=== PATIENT | female | born 1975 | race American Indian/Alaskan Native ===

== ENCOUNTER 2017-10-09 11:53 | Emergency (ER) | payer BC ==
[2017-10-09 12:05] VITALS: BMI 48.9
[2017-10-09 12:09] VITALS: RESP 18; O2SAT 99
[2017-10-09] MEDS ORDERED: Nitroglycerin 2% Ointment Foilpak UD TOP STA (13:19)
[2017-10-09] MEDS ORDERED: Nitroglycerin 2% Ointment Foilpak UD TOP ONE (13:39)
--- NOTE | 2017-10-09 14:32 | C.PDOC ---
History Of Present Illness 42 year old female with a PMHx presents to the ED with complaints of anal pain for the past month Time Seen by Provider: 10/09/17 13:09 Chief Complaint (Nursing): Female Genitourinary History Per: Patient History/Exam Limitations: no limitations Current Symptoms Are (Timing): Still Present Recent travel outside of the [place]: No Past Medical History Reviewed: Historical Data, Nursing Documentation, Vital Signs Vital Signs: Last Vital Signs Temp 97.5 F L 10/09/17 14:34 Pulse 68 10/09/17 14:34 Resp 18 10/09/17 14:34 BP 119/68 10/09/17 14:34 Pulse Ox 99 10/09/17 15:10 - Medical History PMH: Gastrointestinal Ulcer ( PER PATIENT), Hiatal Hernia ( PER PATIENT), HTN Family History: States: Unknown Family Hx - Social History Hx Alcohol Use: No Hx Substance Use: Yes Review Of Systems Constitutional: Negative for: Fever, Chills Cardiovascular: Negative for: Chest Pain, Palpitations Respiratory: Negative for: Cough, Shortness of Breath Gastrointestinal: Positive for: Other (hemorrhoids). Negative for: Nausea, Vomiting ED Course And Treatment O2 Sat by Pulse Oximetry: 99 (RA) Pulse Ox Interpretation: Normal Progress Note: Patient was given Zofram Ultram, and Nitroglycerin 2% introduced into the anus with Jack Levine and RAMIRO matute. Reevaluation Time: 15:02 Reassessment Condition: Improved - Physician Consult Information Outcome Of Conversation: 1400: failed attempts to contact Dr. Madsen- Pt's GI Medical Decision Making Medical Decision Making: anal hemorroid vs fissure in 6 o'clock position. no external hemorroid Improved with NTP to anal region Unable to d/c Dr. Madsen-pending call-back diet, stool softeners, suppositories, bowel habits, Sitz bath's reviewed, annusol suppository NOT instilled in ED so as to not interfere with the highly effective NTP to anus placed in ER Disposition Doctor Will See Patient In The: Office Counseled Patient/Family Regarding: Studies Performed, Diagnosis - Disposition Referrals: [facility] [Outside] [facility] [employer] [facility] [Outside] Fanny Madsen MD [Medical Doctor] - Disposition: HOME/ ROUTINE Disposition Time: 15:05 Condition: GOOD Additional Instructions: continue high fiber diet, apples and oatmeal are ideal. continue Colace 100 mg twice a day- stool softner Sitz Bath (using warm water and bed galvin set in your toilet) Suppositories- Anusol twice a day- especially @ bed time. Prescriptions: Hard Fat/Phenylephrine [place] [Anusol Suppository] 1 sup RC Q12H PRN #10 sup PRN Reason: hemorroids Instructions: Anal Fissure (ED) Forms: Vidder (Urdu) - Clinical Impression Clinical Impression: Anal pain - Scribe Statement The provider has reviewed the documentation as recorded by the Scribe Carmen Delaney All medical record entries made by the Sharifibe were at my direction and personally dictated by me. I have reviewed the chart and agree that the record accurately reflects my personal performance of the history, physical exam, medical decision making, and the department course for this patient. I have also personally directed, reviewed, and agree with the discharge instructions and disposition.
[2017-10-09 14:35] VITALS: BP 119/68; PULSE 68; TEMP 97.5
== END 2017-10-09 15:10 | disposition home or self-care (01) ==
LOC: C.ER 11:53
DX: K62.89 Other specified diseases of anus and rectum (principal)